=== PATIENT | male | born 1955 | race Caucasian/White ===

== ENCOUNTER 2023-10-10 01:47 | Day surgery (SDC) | payer MEDICARE, SELFPAY ==
--- NOTE | 2023-10-08 09:51 | PM.IMHP ---
H&P: HPI History of Present Illness Date/Time: 10/08/23 09:51 Chief Complaint: Urinary retention Narrative: 68-year-old gentleman with longstanding outlet obstructive voiding symptoms and recent progression to urinary retention. He has failed to respond very well to combination of finasteride tamsulosin and bethanechol. Urodynamics show a markedly hypotonic bladder. Prostate volume was 37 g by ultrasound. After discussion of options he has elected to proceed with TURP with the full understanding that this may not enhance voiding efficiency very much. He is aware the risk including, but not limited to, persistent voiding symptoms, hematuria. Review of Systems Cardiovascular: Cardiovascular: Denies chest pain, Denies lightheadedness, Denies palpitations and Denies dyspnea Respiratory: Respiratory: Denies dyspnea Gastrointestinal: Gastrointestinal: Denies diarrhea, Denies nausea and Denies vomiting Genitourinary: Genitourinary: Denies hematuria and Denies dysuria Endocrine: Endocrine: Denies palpitations Meds Home Medications and Allergies Allergies Allergy/AdvReac Type Severity Reaction Status Date / Time No Known Allergies Allergy Unverified 09/13/17 17:05 Exam Const: General: no acute distress Resp: Effort & Inspection: normal respiratory effort GI: Inspection: non-distended GI Palp: No abdominal tenderness and No Guarding due to palpation present (GI) Auscultation: normal bowel sounds Assessment and Plan Assessment and plan (1) BPH loc w urin obs/LUTS: Code(s): N40.1 - Benign prostatic hyperplasia with lower urinary tract symptoms Status: Acute (2) 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
--- NOTE | 2023-10-09 12:49 | PC.NURSE ---
Report to the Outpatient Waiting Room, entrance under the green pavilion located off [facility], at time __1030 AM on date _10/10/23 . Planned Procedure Time: _12:30 PM . Time changes happen often and if your time is changed the preop area will call you the afternoon before. - You and your visitor will be asked to self-screen and do not enter if you have any COVID symptoms. - A mask is optional within the hospital at this time. Patients may have clear liquids (water, carbonated beverages, clear teas, apple juice) until 3 hours prior to surgery(0930) with a maximum of 20 ounces. - No food from midnight until time of surgery - Infants may have breast milk until 4 hours before surgery, infant formula 6 hours prior to surgery. - Children will be allowed to drink immediately following surgery. If applicable, please bring a bottle or sippy cup to assist with drinking. Juice, water, soda, and popsicles are readily available. For infants on formula, please bring formula the day of surgery. Pacifiers are allowed. Take the following medications with a SIP of water the morning of surgery: METOPROLOL,INHALERS DO NOT STOP ANY OF YOUR OTHER PRESCRIPTION MEDICATIONS PRIOR TO SURGERY ?EXCEPT THE FOLLOWING Medications to discontinue per physician NONE Please no make-up, nail english, hairspray, perfume, deodorant, or body powder the day of surgery. No jewelry (including any body piercings) or valuables the day of surgery, leave them at home. Please take a shower or bath the night before, or the morning of, surgery with an antibacterial soap. Wear comfortable, loose fitting clothing. Children are encouraged to wear pajamas. - Jewelry must be removed prior to entering the operating room. Rings and piercings that are not removed may be cut off. - The hospital will not accept responsibility for valuables. - Please leave all valuables, including medications, at home the day of surgery. If you are going home after surgery, a licensed truck driver teamster must drive you home. - NO public transportation without another adult if you receive anesthesia. - We recommend that an adult stay with you for 24 hours following discharge. - We also recommend that you do not drive, make important decision, drink alcoholic beverages, or take any drugs that were not prescribed by your health care provider for at least 24 hours after your discharge time. Follow any additional instructions given to you from your surgeon. If you or anyone in your household have experienced Covid symptoms in the past week, please notify your surgeon or the nurse liaison at the phone number below for possible testing. Telephone instructions given to __PATIENT and asked if any additional questions and then verbalized understanding. Patient advised to call surgeon office or pre surgery nurse liaison [phone] if any additional questions.
[2023-10-09 12:59] VITALS: BMI 31.6
[2023-10-10] VITALS (11 sets, daily range): BP systolic 126–158; BP diastolic 56–77; PULSE 55–78; RESP 12–18; TEMP 36.4–36.8; O2SAT 95–100
--- NOTE | 2023-10-10 05:33 | WPDHPUPDATE1 ---
History and Physical Update Update Date/Time: 10/10/23 05:33 History and Physical has been reviewed, including an updated exam of the patient. There are NO changes in the patient's condition. Risks, benefits, and alternatives have been discussed and questions answered. Patient agrees to proceed with procedure.
--- NOTE | 2023-10-10 06:18 | WPDHPUPDATE1 ---
History and Physical Update Update Date/Time: 10/10/23 06:18 History and Physical has been reviewed, including an updated exam of the patient. There are NO changes in the patient's condition. Risks, benefits, and alternatives have been discussed and questions answered. Patient agrees to proceed with procedure.
--- NOTE | 2023-10-10 08:30 | ECG_ITS ---
Test Date: 2023-10-10 11:38:14 Measurements Intervals [place] Rate: 68 P: 24 DE: 233 QRS: -29 QRSD: 83 T: 51 QT: 362 QTc: 386 Interpretive Statements SINUS RHYTHM WITH FIRST DEGREE AV BLOCK BORDERLINE LEFT AXIS DEVIATION [QRS AXIS < -20] ABNORMAL ECG No previous ECG available for comparison Electronically Signed On 10-11-2023 10:58:32 CDT by Armani Lawson M.D.
--- NOTE | 2023-10-10 11:44 | P.PNAN_ITS ---
Anes - Initial Pre Proc Eval Procedure: Operation Date: 10/10/23 12:30 Proposed Procedures p Trans Urethral Resection Prostate - Hamzah Leary MD Date/Time: 10/10/23 11:44 Surgeon: Hamzah Leary MD Pre Op Diagnosis: BPH Patient Data Age: 68 Gender: M Height: 1.93 m Weight: 120 kg Allergies Allergy/AdvReac Type Severity Reaction Status Date / Time No Known Allergies Allergy Unverified 10/10/23 11:43 Home Medications Medication Instructions Recorded Confirmed Type alfuzosin 10 mg tablet,extended 10 mg PO DAILY 10/09/23 10/09/23 History release 24 hr amlodipine 5 mg tablet 5 mg PO QPM 10/09/23 10/09/23 History bethanechol chloride 25 mg tablet 25 mg PO BID 10/09/23 10/09/23 History finasteride 5 mg tablet 5 mg PO DAILY 10/09/23 10/09/23 History fluticasone propionate 115 2 inh inhalation BID 10/09/23 10/09/23 History mcg-salmeterol 21 mcg/actuation HFA inhaler (Advair HFA) metoprolol succinate 100 mg 50 mg PO QAM 10/09/23 10/10/23 History tablet,extended release 24 hr tiotropium bromide 1.25 1 puff inhalation DAILY 10/09/23 10/09/23 History mcg/actuation mist for inhalation (Spiriva Respimat) Patient hx anesthesia problems: none Family hx anesthesia problems: none Results Review: All pre-operative results and documents have been reviewed as part of the pre- operative evaluation. PMFSH Social History Social History Smoking packs per day: 1 Smoking cigarettes per day: 20.0 Years smoked: 50 Smoking pack-years: 50.00 Smoking status: Current every day smoker Tobacco type: cigarettes Alcohol intake: current Drinks per week: 21 Living arrangements: alone Spiritual care concerns: No Anes - Eval Final PreProcedure Day of Procedure 10/10/23 11:44 Patient weight: obese Heart: regular rate and rhythm Lungs: clear to auscultation Airway: Mallampati scale class II Neurological: alert and oriented Last oral intake: >/= 8 hours ASA classification: III Emergent: no Anesthetic plan: proceed Anesthesia type and monitoring: general LMA and standard monitoring Results Review: All pre-operative results and documents have been reviewed as part of the pre- operative evaluation. Informed Consent: The patient's anesthetic plan and its attendant risks and benefits were discussed with the patient/family/POA. Questions were solicited and answers provided to the satisfaction of the patient/family/POA.
[2023-10-10] MEDS: ceFAZolin 3 GM/D5W 100 ML 100 ML IVPB (13:44)
[2023-10-10] MEDS: LACTATED RINGERS 1,000 ML 30 ML IV CONT (14:53)
[2023-10-10] MEDS: fentaNYL CITRATE INJ (*CRX) 100 MCG/2 ML VIAL 25 MCG IV PUSH (15:23)
--- NOTE | 2023-10-10 15:46 | W.PM.PROC2 ---
Procedure Note - Detailed Date of Procedure 10/10/23 Pre-op Diagnosis BPH Post-op Diagnosis Same Procedure Performed TURP Surgeon Hamzah Leary MD Anesthesia General Description of Procedure The patient was brought to the operative suite where he is prepped and draped in routine sterile fashion while in the dorsal lithotomy position after the uneventful induction of a general LMA anesthetic. A 27 Serbian resectoscope sheath was placed into his bladder. He had no urethral strictures. The patient had [trilobar/bilobar] hyperplasia with a large median lobe. The bladder itself was endoscopically normal, showing no mucosal hyperemia, intravesical neoplasm or foreign bodies. There was a single, orthotopic ureteral orifice bilaterally. These orifices were identified and preserved throughout the remainder of the procedure. Attention was first turned to resection of the median lobe. This resection was undertaken from the bladder neck to the verumontanum and carried out until the transverse fibers of the bladder neck were identified. The left lateral lobe was then resected starting at the 6 o'clock position, working counter clockwise to the 12 o'clock position. Again, resection was carried out from the bladder neck to the verumontanum until the capsular fibers of the prostate were identified. The right lateral lobe was resected in a similar fashion starting at the 6 o'clock position working clockwise to the 12 o'clock position and carried out until the capsular fibers of the prostate were identified. Apical tissue was then circumferentially resected. All chips were evacuated from the bladder using an ItsGoinOn evacuator. Hemostasis was obtained with electric cautery. The ureteral orifices were again inspected and found to be without injury. Estimated blood loss throughout this procedure was []cc. The patient was taken to recovery room having tolerated this well. Drains Yes Packing No Pathology Yes Complications No immediate complications Condition Stable Disposition PACU
--- NOTE | 2023-10-10 16:10 | SUR.PHASEI ---
1600 - cbi in 2500. cbi out 3700. one full bag and one bag [id number] in it.
--- NOTE | 2023-10-10 16:32 | ADMGEN ---
This patient, William Sutherland, was admitted to Medical Room 261-01. Patient/family oriented to hospital policies and general routines including ID bracelet, bed and alarms, visiting hours, pain management, procedures, bathroom and other care routines, personal items, smoking policy, room service/diet, and visiting hours. Information on how to activate the Rapid Response Team has been discussed. Patient/Family are encouraged to report perceived risks to care and to ask questions if they do not understand what they are told or what they should do.
[2023-10-10] MEDS: DOCUSATE SODIUM 100 MG CAPSULE PO (18:12)
[2023-10-10] MEDS: amLODIPine BESYLATE 5 MG TABLET PO (18:12)
[2023-10-10] MEDS: FLUTICASONE/SALMETEROL 115-21 MCG INHALER 1 PUFF 2 PUFF INHALATION (21:46)
[2023-10-10] MEDS: METOPROLOL SUCCINATE EXT REL 100 MG TABCR PO (21:51)
[2023-10-10] MEDS: ceFAZolin 1 GM/NS 50 ML 1 GM/50 ML BAG IVPB (21:53)
[2023-10-11 02:05] VITALS: BP 114/80; PULSE 72; RESP 18; TEMP 36.8; O2SAT 98
[2023-10-11 04:43] LABS: Hematocrit 39.6 % (42.0-52.0)
[2023-10-11] MEDS: ceFAZolin 1 GM/NS 50 ML 1 GM/50 ML BAG IVPB (05:15)
[2023-10-11 05:16] LABS: Anion Gap 7 mmol/L (4-12); Blood Urea Nitrogen 13 mg/dL (9-20); Calcium 8.8 mg/dL (8.4-10.2); Carbon Dioxide 26 mmol/L (22-30); Chloride 104 mmol/L (98-107); Estimated CRCL calculation 86 ml/min; Estimated Glomerular Filt Rate > 60; Glucose 114 mg/dL (65-110); Sodium 137 mmol/L (137-145)
[2023-10-11 06:00] VITALS: BP 124/60; PULSE 71; RESP 18; TEMP 36.9; O2SAT 95
--- NOTE | 2023-10-11 06:03 | WPDUROPN2 ---
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 Subjective Subjective Date/Time Seen: 10/11/23 06:03 Interval history: Comfiortable, no complaints Review of Systems Cardiovascular: Cardiovascular: Denies chest pain, Denies lightheadedness, Denies palpitations and Denies dyspnea Respiratory: Respiratory: Denies dyspnea Gastrointestinal: Gastrointestinal: Denies diarrhea, Denies nausea and Denies vomiting Genitourinary: Genitourinary: Denies hematuria and Denies dysuria Endocrine: Endocrine: Denies palpitations Exam Const: General: no acute distress Resp: Effort & Inspection: normal respiratory effort GI: Inspection: non-distended GI Palp: No abdominal tenderness and No Guarding due to palpation present (GI) Auscultation: normal bowel sounds Objective Data Vital Signs Vital Signs: Vital Signs - 24 hr 10/10/23 11:30 10/10/23 14:53 10/10/23 15:15 Temperature 97.8 F 97.7 F Pulse Rate 78 60 55 L Respiratory Rate 16 12 15 Blood Pressure 126/63 136/71 157/77 H Pulse Oximetry 96 100 100 Oxygen Delivery Room Air Simple Face Mask Simple Face Mask Oxygen Flow Rate 7 7 10/10/23 15:35 10/10/23 15:45 10/10/23 16:20 Temperature 97.5 F L Pulse Rate 57 L 55 L 62 Respiratory Rate 14 14 18 Blood Pressure 150/77 H 151/75 H 158/67 H Pulse Oximetry 100 100 95 Oxygen Delivery Simple Face Mask Room Air Oxygen Flow Rate 7 10/10/23 16:35 10/10/23 17:05 10/10/23 18:05 Temperature 97.5 F L 97.5 F L 97.5 F L Pulse Rate 68 78 78 Respiratory Rate 18 18 18 Blood Pressure 143/71 H 148/68 H 149/62 H Pulse Oximetry 96 95 95 Oxygen Delivery Oxygen Flow Rate 10/10/23 21:51 10/10/23 22:00 10/11/23 02:05 Temperature 98.2 F 98.3 F Pulse Rate 75 75 72 Respiratory Rate 18 18 Blood Pressure 131/56 L 114/80 Pulse Oximetry 98 98 Oxygen Delivery Oxygen Flow Rate 10/11/23 06:00 Temperature 98.5 F Pulse Rate 71 Respiratory Rate 18 Blood Pressure 124/60 Pulse Oximetry 95 Oxygen Delivery Oxygen Flow Rate Intake/Output Intake/Output: Intake & Output 10/08/23 10/09/23 10/10/23 10/11/23 23:59 23:59 23:59 23:59 Intake Total 940 250 Output Total 1250 Balance -310 250 Meds/Results Medications: Active Medications Generic Name Dose Route Start Last Admin Trade Name Freq PRN Reason Stop Dose Admin Hydrocodone Bitart/Acetaminophen 1 tab 10/10/23 16:20 Hydrocodone/Acetaminophen (*Crx) 5-325 Mg Tablet PO Q4H PRN Pain Rated 1-6 Amlodipine Besylate 5 mg 10/10/23 18:00 10/10/23 18:12 Amlodipine Besylate 5 Mg Tablet PO 5 mg QPM BETI Administration Cephalexin HCl 500 mg 10/11/23 12:00 Cephalexin 500 Mg Capsule PO Q6HR BETI Docusate Sodium 100 mg 10/10/23 17:00 10/10/23 18:12 Docusate Sodium 100 Mg Capsule PO 100 mg BID BETI Administration Hyoscyamine 0.125 mg 10/10/23 16:20 Hyoscyamine Sulfate 0.125 Mg Tablet SUBLINGUAL Q6H PRN Bladder Spasm Cefazolin Sodium 1 gm in 50 mls @ 100 mls/hr 10/10/23 22:00 10/11/23 05:15 Ancef 1 Gm/Ns 50 Ml IVPB 10/11/23 06:29 100 mls/hr Q8H BETI Administration Metoprolol Succinate 50 mg 10/11/23 09:00 Metoprolol Succinate Ext Rel 50 Mg Tabcr PO QAM BETI Metoprolol Succinate 100 mg 10/10/23 21:00 10/10/23 21:51 Metoprolol Succinate Ext Rel 100 Mg Tabcr PO 100 mg HS BETI Administration Morphine Sulfate 2 mg 10/10/23 16:20 Morphine Sulfate (*Crx) 2 Mg/Ml Inj IV PUSH Q2H PRN Pain Rated 7-10 Naloxone HCl 0.1 mg 10/10/23 16:20 Naloxone Hcl 0.4 Mg/Ml Vial IV PUSH
--- NOTE | 2023-10-11 06:26 | PC.NURSE ---
CBI was stopped by Dr Leary at 0555. Medical Educator disconnected and plugged lumen at 0615
[2023-10-11 07:28] VITALS: PULSE 75; RESP 18
[2023-10-11] MEDS: FLUTICASONE/SALMETEROL 115-21 MCG INHALER 1 PUFF 2 PUFF INHALATION (07:29)
[2023-10-11] MEDS: UMECLIDINIUM BROMIDE 62.5 MCG ELLIPTA 1 PUFF INHALATION (07:30)
[2023-10-11 08:39] VITALS: PULSE 75
[2023-10-11] MEDS: DOCUSATE SODIUM 100 MG CAPSULE PO (08:39)
[2023-10-11] MEDS: METOPROLOL SUCCINATE EXT REL 50 MG TABCR PO (08:39)
[2023-10-11 09:25] VITALS: PULSE 72; RESP 18
[2023-10-11] MEDS: CEPHALEXIN 500 MG CAPSULE PO (12:12)
--- NOTE | 2023-10-11 15:58 | PM.DS ---
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 The procedure was undertaken on that same day in an uneventful fashion. His post-operative course was, likewise, uneventful. On the evening of the procedure he was tolerating a diet. On POD#1 his urine was clear on CBI. The urine remained clear and, therefore, the catheter was removed late morning. The patient was observed for several hours, until he demonstrated he could void effectively without significant hematuria. He was discharged with careful instruction on limiting physical activity x2 weeks and plans to f/ in 2-3 weeks. At discharge he was comfortable and tolerating a diet. Time Spent with Patient Time attestation: Total time spent providing and/or coordinating discharge services: DS: Data Data Completed and Pending Pending studies at discharge: Pending at discharge 10/10/23 14:11 Surgical [PTH] Routine Labs on day of discharge: Labs from last 24 hours 10/11/23 04:31 Hgb 13.0 L Hct 39.6 L Sodium 137 Potassium 4.0 Chloride 104 Carbon Dioxide 26 Anion Gap 7 BUN 13 Creatinine 1.00 Estim Creat Clear Calc 86 Estimated GFR > 60 Glucose 114 H Calcium 8.8 Discharge Plan Discharge Patient Disposition: Home, Self-Care Discharge Instructions: 1) Activity: No lifting/straining >15lbs. x2 weeks. 2) Diet: Resume normal pre-admission diet. 3) Follow-up: 2-3 weeks / call office for appointment ([phone]). Patient Instructions: How to Stop Smoking (GEN) Stand Alone Forms: General Discharge Instructions Discharge Orders: Discharge Order (Routine); Ordered 10/11/23 Ordered By: Hamzah Leary Discharge Medications: New docusate sodium [Colace] 100 mg capsule 100 mg PO DAILY Qty: 30 0RF hydrocodone-acetaminophen 5-325 mg tablet 1 - 2 tablet PO Q6H PRN (Reason: pain) Qty: 20 0RF sulfamethoxazole-trimethoprim 800-160 mg tablet 1 tablet PO Q12H Qty: 6 0RF Continued amlodipine 5 mg tablet 5 mg PO QPM metoprolol succinate 100 mg tablet extended release 24 hr 50 mg PO QAM Patient Comments: TAKES 100MG AT HS Spiriva Respimat 1.25 mcg/actuation mist 1 puff INHALATION DAILY fluticasone propion-salmeterol [Advair HFA] 115-21 mcg/actuation HFA aerosol inhaler 2 inh INHALATION BID Discontinued finasteride 5 mg tablet 5 mg PO DAILY alfuzosin 10 mg tablet extended release 24 hr 10 mg PO DAILY bethanechol chloride 25 mg tablet 25 mg PO BID No Action metoprolol succinate 100 mg tablet extended release 24 hr 100 mg PO HS
== END 2023-10-11 16:14 | disposition home or self-care (01) ==
LOC: ANHSURGERY 15:06 → ANH2MED 16:22
PROVIDERS: PCP Family Medicine; Visit Provider Urology
PROC: 0VT08ZZ Resection of Prostate, Via Natural or Artificial Opening Endoscopic (ICD-10-PCS; CPT 52601; principal; 2023-10-10 12:30)
DX: N40.1 Benign prostatic hyperplasia with lower urinary tract symptoms (principal); N31.2 Flaccid neuropathic bladder, not elsewhere classified; N13.8 Other obstructive and reflux uropathy; Z79.51 Long term (current) use of inhaled steroids; F17.210 Nicotine dependence, cigarettes, uncomplicated; E66.9 Obesity, unspecified; Z68.32 Body mass index [BMI] 32.0-32.9, adult
CPT/HCPCS: 52601; 36415; 80048; 85014; 85018; 88305; 93005; 94640; A9270; J0690; J1100; J2405; J2704; J3010; J7120